=== PATIENT | male | born 1980 | race Caucasian/White ===

== ENCOUNTER 2016-09-22 19:04 | Emergency (ER) | payer OTHER ==
--- NOTE | ~2016-09-22 | CR112 ---
[facility] A Service of [facility] RADIOLOGY TEXT RESULTS PATIENT: KEN HARDWICK LOCATION: [facility] : 76 UNIT #: [id number] AGE: [address]: CARLTON BRIGHT APRN SEX: M ORDER DR: [id number] [facility] [address] [place], [place] [address] [id number] E MR#: [id number] Acc #: [id number] NAME: KEN HARDWICK. : 1980 SEX: M STUDY DATE/TIME: 09/22/2016 19:21 UNIT: [facility] ROOM: STUDY DESCRIPTION: CR Finger 2 View 4Th Lt Attending Physician: Carlton Bright Aprn Ordering Physician: Jayson Royal M.D. Primary Care Physician: No Primary Care Physician MEDICAL IMAGING REPORT This report is preliminary unless electronic signature is present EXAM Left fourth digit 3 views HISTORY Finger injury after fall yesterday. FINDINGS Three views left fourth digit demonstrate normal bone alignment. No fracture, joint space narrowing or dislocation. No opaque soft tissue foreign body. IMPRESSION Negative. Dictated by... Pepito Newby M.D. THIS IS AN ELECTRONICALLY VERIFIED REPORT Pepito Newby M.D. at 09/22/2016 11:17 PM [email or web address]/[email or web address] TD: 09/22/2016 22:25 JOB #: [id number] MEDICAL IMAGING REPORT Page 1 of 1 COPY
[~2016-09-22 19:04] MED LIST: AMOXICILLIN875 MG PO; DICLOFENAC PO; DOXYCYCLINE PO; FLEXERIL PO; FLEXERIL10 M1 PO; FLEXERIL10 MG PO; INDOMETHACIN50 MG PO; KEFLEX500 MG PO; LORTAB 5/500 TA1 TA1 PO; MEDROL4 MG/DOSE- PO; ORUDIS75 M1 DOB; PEN-VEE K PO; PREDNISONE50 MG PO; PROVENTIL17 GM IH; ROBITUSSIN AC PO; ROBITUSSIN-DM120 ML PO; SOMA PO; TAVIST PO; ULTRAM PO; VICODIN 5/500 T1 TAB PO; VISCOUS LIDOCAINE PO; VOLTAREN75 MG PO
== END 2016-09-22 22:00 | disposition home or self-care (01) ==
LOC: CED 19:04 → CFTX 19:04
DX: S63.635A Sprain of interphalangeal joint of left ring finger, initial encounter (principal); F17.210 Nicotine dependence, cigarettes, uncomplicated; W19.XXXA Unspecified fall, initial encounter; Y92.89 Other specified places as the place of occurrence of the external cause
CPT/HCPCS: 29130; 73140; 99283

== ENCOUNTER 2016-10-03 12:15 | Emergency (ER) | payer OTHER ==
--- NOTE | ~2016-10-03 | CR72 ---
[facility] A Service of [facility] RADIOLOGY TEXT RESULTS PATIENT: KEN HARDWICK LOCATION: [facility] : 76 UNIT #: [id number] AGE: [address]: Jim Buck MD SEX: M ORDER DR: [id number] [facility] [address] [place], [place] [address] [id number] E MR#: [id number] Acc #: [id number] NAME: KEN HARDWICK : 1980 SEX: M STUDY DATE/TIME: 10/03/2016 14:23 UNIT: [facility] ROOM: STUDY DESCRIPTION: CR Chest Single View Portable Attending Physician: Jim Buck M.D. Ordering Physician: Jim Buck M.D. Primary Care Physician: No Primary Care Physician MEDICAL IMAGING REPORT This report is preliminary unless electronic signature is present EXAM Portable chest, 10/03/2016. HISTORY Chest pain beginning yesterday. COMPARISON Chest, 08/09/2011. FINDINGS Frontal chest demonstrates clear lungs. No pleural effusion or pneumothorax. Heart size and mediastinum are normal. Pulmonary vasculature normal. IMPRESSION No acute cardiopulmonary findings. Dictated by... Jose Ventura M.D. THIS IS AN ELECTRONICALLY VERIFIED REPORT Jose Ventura M.D. at 10/04/2016 6:26 AM BENNETT/[email or web address] TD: 10/03/2016 14:59 JOB #: [id number] MEDICAL IMAGING REPORT Page 1 of 1 COPY
--- NOTE | ~2016-10-03 | EKG ---
PATIENT: KEN HARDWICK UNIT #: [id number] Ventricular Rate: 73 BPM Atrial Rate: 73 BPM P-R Interval: 182 ms QRS Duration: 86 ms Q-T Interval: 362 ms QTC Calculation(Bezet): 398 ms P [place]: 46 degrees Calculated R [place]: 92 degrees Calculated T [place]: 20 degrees Diagnosis Line: Normal sinus rhythm Diagnosis Line: Rightward axis Diagnosis Line: Borderline ECG Diagnosis Line: No previous ECGs available Diagnosis Line: Confirmed by STELLA ROSEN MD ([id number]) on Diagnosis Line: 10/03/2016 4:33:10 PM INTERPRETING MD: JESSIKA LANE
[2016-10-03 13:47] LABS: POC - CKMB 10.5 ng/mL (0.0-7.9); POC - TROPONIN <0.05 ng/mL (<=0.05)
[2016-10-03 13:58] LABS: BASOPHIL% 0.6 % (0-2.5); EOSINOPHIL# 0.3 X10e3 (0-0.7); EOSINOPHIL% 3.4 % (0.0-7.0); HEMATOCRIT 47.8 % (38.0-50.0); LYMPHOCYTE# 3.1 X10e3 (1.0-3.5); LYMPHOCYTE% 41.4 % (17.0-45.0); MEAN CELL VOLUME 90.6 FL (83-96); MEAN CORPUSCULAR HEMOGLOBIN 30.3 PG (28-34); MEAN CORPUSCULAR HGB CONC 33.5 g/dL (30-36); MEAN PLATELET VOLUME 9.8 FL (6.5-11.5); MONOCYTE# 0.7 X10e3 (0-1.0); MONOCYTE% 9.3 % (3.0-12.0); NEUTROPHIL# 3.4 X10e3 (1.5-7.1); NEUTROPHIL% 45.3 % (40-75); PLATELET COUNT 148 X10e3 (140-420); RED BLOOD COUNT 5.28 X10e (3.90-5.60); RED CELL DISTRIBUTION WIDTH 13.3 % (11.0-15.5); WHITE BLOOD COUNT 7.5 X10e3 (4.0-10.5)
[2016-10-03 14:06] LABS: DIFF IND NO
[2016-10-03 14:26] LABS: ALBUMIN SERUM 4.4 g/dL (3.5-5.0); ALKALINE PHOSPHATASE 72 U/L (32-92); ALT (SGPT) 56 U/L (10-40); AST (SGOT) 44 U/L (10-42); BILIRUBIN,TOTAL 0.3 mg/dL (0.2-2.0); BLOOD UREA NITROGEN 15 mg/dL (9-23); BUN/CREATININE RATIO 16.66; CALCIUM SERUM 9.3 mg/dL (8.4-10.2); CARBON DIOXIDE 24 mmol/L (22-31); CHLORIDE 107 mmol/L (100-111); CREATININE SERUM 0.9 mg/dL (0.6-1.4); GLOM FILT RATE Estimated 108.7 mL/min (>60); GLUCOSE FASTING 112 mg/dL (70-110); POTASSIUM 3.9 mmol/L (3.5-5.1); PROTEIN TOTAL SERUM 7.1 g/dL (6.0-8.3); SODIUM 139 mmol/L (135-145)
[2016-10-03 14:27] LABS: BILIRUBIN, DIRECT <0.1 mg/dL (0.0-0.2); BILIRUBIN,INDIRECT 0.2 mg/dL (0.0-0.9)
[2016-10-03 15:42] LABS: POC - CKMB 8.9 ng/mL (0.0-7.9); POC - TROPONIN <0.05 ng/mL (<=0.05)
== END 2016-10-03 16:09 | disposition home or self-care (01) ==
LOC: CED 12:15
PROVIDERS: Emergency Medicine
DX: R07.89 Other chest pain (principal)
CPT/HCPCS: 71010; 80048; 80076; 82553; 84484; 85025; 93005; 99284